=== PATIENT | male | born 1955 | race Caucasian/White ===

== ENCOUNTER 2024-06-23 13:55 | Emergency (ER) | payer OTHER, SELFPAY ==
[2024-06-23 13:58] VITALS: BP 132/87
[2024-06-23 14:27] VITALS: BP 140/80
--- NOTE | 2024-06-23 15:10 | ED.GENMED ---
History of Present Illness
General
Chief Complaint: Allergic Reaction
Source: patient
Exam Limitations: none
Time Seen by Provider: 06/23/24 15:10
Nursing documentation reviewed up to this point in time: agreed with
History of Present Illness
History of Present Illness:
Patient is a 68-year-old male who presents to the ER for allergic reaction. Patient reports about 1 hour ago he was working in his garden and suddenly realized that he was getting hives his lips were swollen and he reports it felt like his throat
was closing up. He did not take any medicine prior to arrival. He presents to the awake alert he is able to speak in full sentences. He does feel that his voice is hoarse.
Past History
Past History
ED Past Medical History: Other (Anemia)
ED Past Surgical History: Orthopedic (Left leg surgery) and Other (Tracheostomy at age 2-1/2, dental surgery)
Patient has exhibited threatening behavior?: No
PSI?: No
Social History
Tobacco: Non-smoker
Alcohol: Occasional
Drug: None
Personal:
Living: with family
Employment: Employed
Family History
Family History: Other (Noncontributory)
Review of Systems
Review of Systems
Allergies reviewed?: Yes
Other source history: family
All Other Systems: ROS reviewed and negative except as documented in HPI and ROS
Constitutional: Reports no symptoms
EENT: Reports other (throat hoarse, lip swollen )
Respiratory: Reports no symptoms
Cardiac: Reports no symptoms
ABD/GI: Reports no symptoms
: Reports no symptoms
Musculoskeletal: Reports no symptoms
Skin: Reports other (hives)
Neurological: Reports no symptoms
Psychiatric: Reports no symptoms
Phy Exam
General Physical Exam
General Presentation: no apparent distress
General age: appears stated age
General Skin: warm and dry
General Habitus: normal
General Mental: alert
General Hydration: appears well hydrated
ENT Exam
ENT Exam: other (No drooling tolerating secretions well lips appear mildly swollen)
Cardiovascular Exam
Cardiovascular Exam: regular rate/rhythm, no murmur and normal peripheral pulses
Pulmonary Exam
Pulmonary Exam: lungs clear and no respiratory distress
Neurological Exam
Neurological Exam: alert and oriented x3
Musculoskeletal Exam
Musculoskeletal Exam: full ROM
Skin Exam
Skin Exam: normal color, warm/dry and other (Scattered hives)
Psychiatric Exam
Psychiatric Exam: normal mood/affect
Course
Orders/Labs/Results
Orders:
Orders
06/23/24 15:17
0.9% Sodium Chloride 1000 ml [Nss] 1,000 ml IV BOLUS
Dexamethasone Sod Phosphate [Decadron] 10 mg IV NOW STA
Diphenhydramine [Benadryl] 50 mg IV NOW STA
Famotidine [Pepcid] 20 mg IV NOW STA
Racepinephrine [Vaponefrin Nebs] 0.5 ml INH R NOW STA
Vital Signs
Initial and Last Documented VS:
Initial Vital Signs
Temp Pulse Resp BP Pulse Ox
98.0 F 93 18 132/87 93
06/23/24 13:58 06/23/24 13:58 06/23/24 13:58 06/23/24 13:58 06/23/24 13:58
Last Documented Vital Signs
Temp Pulse Resp BP Pulse Ox
98.0 F 61 14 140/80 97
06/23/24 13:58 06/23/24 17:45 06/23/24 17:45 06/23/24 14:27 06/23/24 17:45
MDM/Problems Addressed
Differential Diagnosis Includes:
Not limited to allergic reaction
MDM/Problems Addressed:
Patient is documented presented with an allergic reaction while working in the garden he did describe a hoarse voice' tight sensation throat' and developed hives. He presented awake alert no acute distress he felt that his voice was here hoarse in
the ER however no obvious lip or tongue swelling he tolerate secretions well no drooling. Lungs are clear. Patient does have scattered hives however he is not hypoxic in no acute distress. Patient was given 1 dose of racemic epi along with
steroids Decadron Benadryl Pepcid. Patient was monitored here feeling much better will DC with steroids for the next 3 days and instructions to take Benadryl for the next 24 hours.
*Critical Care Note
Total Time (30-74mins, 75-104mins- exclusive of procedures): Not Applicable
ED Attending Note
-
Portions of this chart may have been created with voice recognition software.� Occasional wrong word or��sound alike� substitutions may have occurred due to the inherent limitations of voice recognition software.
Discharge Plan
Departure
Patient Disposition: Home (Routine Discharge)
Date of Disposition: 06/23/24
Time of Disposition: 18:01
Patient with high blood pressure during this ER visit?: Yes
Condition: Fair
Covid-19: Not Applicable
Discharge Problem:
Allergic reaction
Instructions: Allergic reaction - ED discharge instructions, BLOOD PRESSURE
Prescriptions:
New
prednisone 20 mg tablet
40 mg PO DAILY Qty: 6 0RF
No Action
ciprofloxacin HCl 500 mg Tablet
500 mg PO BID Qty: 20 0RF
pantoprazole [Protonix] 40 mg tablet,delayed release (DR/EC)
40 mg PO BID Qty: 60 1RF
Referrals:
Hermes Cristobal MD [Family Provider] -
Activity Restrictions/Additional Instructions:
As discussed a prescription for prednisone, steroid was sent to your pharmacy. Take 2 tablets daily for the next 3 days. For the next 24 hours please take Benadryl as needed every 4-6 hours. Return to the ER for any worsening of symptoms of
difficulty breathing lip or tongue swelling worsening hives or any further concerns. See your family doctor the next 2 days for reevaluation.
Interventions
Interventions:
*Risk Screen - Suicide Last Done: 06/23/24 13:58
*General Assessment Last Done: 06/23/24 13:58
*Neglect/Abuse Screening Last Done: 06/23/24 13:58
ED- Cardiac Assessment Last Done: 06/23/24 14:54
ED- Pulmonary Assessment Last Done: 06/23/24 14:54
ED-Skin Assessment Last Done: 06/23/24 14:54
Discharge Date and Time
Print Language: INDONESIAN
[2024-06-23] MEDS: VAPONEFRIN NEBS 0.5 ML INH (15:26)
[2024-06-23] MEDS: BENADRYL 50 MG IV (15:26)
[2024-06-23] MEDS: DECADRON 10 MG IV (15:26)
[2024-06-23] MEDS: PEPCID 20 MG IV (15:27)
[2024-06-23] MEDS: NSS 1000 IV (15:27)
== END 2024-06-23 18:13 | disposition home or self-care (01) ==
LOC: EMR 13:55
PROVIDERS: EMERGENCY PHYSICIAN Student in an Organized Health Care Education/Training Program; FAMILY PHYSICIAN Internal Medicine
DX: L50.9 Urticaria, unspecified (principal); T78.40XA Allergy, unspecified, initial encounter
CPT/HCPCS: 99284; 96374; 96375 ×2; 96361; 94640